=== PATIENT | male | born 1945 | race Caucasian/White ===

== ENCOUNTER 2017-03-05 09:35 | Outpatient (CLI) | payer OTHER ==
--- NOTE | 2017-03-05 09:50 | DIAGNOSTIC IMAGING REPORT ---
PROCEDURE: XR CHEST 2 VIEW INDICATION: LYMPHOMA-NHL, RX W/CHEMO AND RADIATION TECHNIQUE: PA and lateral views. COMPARISON: None. FINDINGS: Lungs are clear. Heart and mediastinum are normal. Thorax is normal. IMPRESSION: 1. Negative chest.
== END 2017-03-05 23:00 ==
LOC: XR SRH 09:35
DX: C85.90 Non-Hodgkin lymphoma, unspecified, unspecified site (principal)

== ENCOUNTER 2017-03-11 10:24 | Outpatient (CLI) | payer OTHER ==
--- NOTE | 2017-03-13 10:58 | DIAGNOSTIC IMAGING REPORT ---
PROCEDURE: 2-D M-mode echo Doppler CLINICAL INDICATION: History of atrial TECHNIQUE: Standard technique employed COMPARISON: None FINDINGS: The aortic valve is normal. The mitral valve exhibits one to 2+ MR the tricuspid valve exhibits trace to 1+ TR with RVSP that is normal pulmonic valve is normal. LVH present LV contractility mild diffusely reduced with an EF of 45% grade 2 diastolic dysfunction present. Right ventricular dimension function and pressure is normal left and right atrial dimensions are normal. There are no abnormalities of the aortic or pericardium appreciated IMPRESSION: One to 2+ MR Trace to 1+ TR with normal RVSP Diffusely reduced ventricular function EF 45% Stage II diastolic dysfunction LVH
== END 2017-03-11 23:00 ==
LOC: US SRH 10:24
DX: C85.90 Non-Hodgkin lymphoma, unspecified, unspecified site (principal); I34.0 Nonrheumatic mitral (valve) insufficiency; I50.30 Unspecified diastolic (congestive) heart failure